=== PATIENT | female | born 1995 | race African-American/Black ===

== ENCOUNTER 2018-02-03 02:18 | Emergency (ER) | payer OTHER ==
[~2018-02-03] VITALS: Ht 162.6 cm; Wt 72.6 kg
[2018-02-03] MEDS ORDERED: PRENA1 TRUE CO1 EACH (03:05)
[2018-02-03] MEDS ORDERED: FLONASE ALLERG9.9 ML NASAL (06:28)
[2018-02-03] MEDS ORDERED: KEFLEX500 MG PO (06:28)
== END 2018-02-03 06:41 | disposition home or self-care (01) ==
LOC: ER 02:18
DX: J32.8 Other chronic sinusitis (principal); J06.9 Acute upper respiratory infection, unspecified

== ENCOUNTER 2018-08-14 03:24 | Emergency (ER) | payer OTHER ==
[~2018-08-14] VITALS: Ht 154.9 cm; Wt 83.0 kg
[~2018-08-14 03:24] MED LIST: FLONASE ALLERG9.9 ML NASAL; KEFLEX500 MG PO; PRENA1 TRUE CO1 EACH
[2018-08-14] MEDS ORDERED: HYDROCORTISONE15 GM TOP (05:44)
== END 2018-08-14 05:59 | disposition home or self-care (01) ==
LOC: ER 03:24
DX: L30.8 Other specified dermatitis (principal)

== ENCOUNTER 2018-08-30 14:00 | Inpatient (IN) | payer OTHER ==
[~2018-08-30] VITALS: Ht 154.9 cm; Wt 87.1 kg
[~2018-08-30 14:00] MED LIST changes: +HYDROCORTISONE15 GM TOP
[2018-09-10] MEDS ORDERED: SURFAK240 M1 PO (13:41)
[2018-09-10] MEDS ORDERED: PERCOCET 5-3251 EACH PO (13:41)
== END 2018-09-10 16:44 | disposition home or self-care (01) | DRG 766 ==
LOC: LDR 09-03 14:00 → O/R 09-07 20:57 → OB/GYN 09-07 23:26
PROVIDERS: Specialist
PROC: 4A1HXCZ Monitoring of Products of Conception, Cardiac Rate, External Approach (ICD-10-PCS; 2018-09-07)
PROC: 10D00Z1 Extraction of Products of Conception, Low, Open Approach (ICD-10-PCS; principal; 2018-09-07 20:00)
DX: O62.1 Secondary uterine inertia (principal); Z3A.40 40 weeks gestation of pregnancy; Z37.0 Single live birth; Z22.330 Carrier of Group B streptococcus

== ENCOUNTER 2018-09-07 03:05 | Outpatient (CLI) | payer OTHER | END 2018-09-07 10:05 | disposition still patient (30) | LOC: OBS/DEL 03:05 | DX: O48.0 Post-term pregnancy (principal); Z34.03 Encounter for supervision of normal first pregnancy, third trimester ==